=== PATIENT | female | born 1945 | race Hispanic/Latino ===

== ENCOUNTER → 2019-05-01 | Outpatient (CLI) | payer MEDICARE ==
[~2019-05-01] MED LIST: IOHEXOL-350 50ML VIAL IV ONE; IOHEXOL-350 75 ML VIAL IV ONE
== END | disposition home or self-care (01) ==
LOC: RAH 07:40
PROVIDERS: ATTEND Internal Medicine Cardiovascular Disease
DX: K57.30 Diverticulosis of large intestine without perforation or abscess without bleeding (principal); I70.0 Atherosclerosis of aorta; I70.8 Atherosclerosis of other arteries; K42.9 Umbilical hernia without obstruction or gangrene; N20.0 Calculus of kidney; I10 Essential (primary) hypertension; K59.00 Constipation, unspecified; Z90.49 Acquired absence of other specified parts of digestive tract
CPT/HCPCS: 75635; Q9967 ×2

== ENCOUNTER → 2019-05-12 | Outpatient (CLI) | payer MEDICARE | END | disposition home or self-care (01) | LOC: SHCH 13:34 → EDUNIT# 14:00 | PROVIDERS: ATTEND Internal Medicine Cardiovascular Disease | DX: I10 Essential (primary) hypertension (principal) | CPT/HCPCS: 93306 ==

== ENCOUNTER → 2019-08-18 | Outpatient (CLI) | payer MEDICARE ==
[2019-08-18 10:28] LABS: HEMOGLOBIN A1C 5.4 % (4.0-6.0)
[2019-08-18 10:40] LABS: CREATININE 0.8 mg/dL (0.5-1.5); POTASSIUM 3.7 mmol/L (3.5-5.1); THYROID STIMULATING HORMONE 1.62 uIU/mL (0.36-3.74)
== END | disposition home or self-care (01) ==
LOC: LAB 09:47
PROVIDERS: ATTEND Internal Medicine
DX: D35.00 Benign neoplasm of unspecified adrenal gland (principal); R73.9 Hyperglycemia, unspecified; R78.5 Finding of other psychotropic drug in blood; E04.9 Nontoxic goiter, unspecified; I70.0 Atherosclerosis of aorta
CPT/HCPCS: 36415; 80048; 80061; 82308; 83036; 84439; 84443

== ENCOUNTER → 2019-08-25 | Outpatient (CLI) | payer MEDICARE ==
[~2019-08-25] MED LIST changes: +GADODIAMIDE 10 MMOL/20 ML VIAL IV ONE; -IOHEXOL-350 50ML VIAL IV ONE; -IOHEXOL-350 75 ML VIAL IV ONE
== END | disposition home or self-care (01) ==
LOC: RAH 07:53
PROVIDERS: ATTEND Student in an Organized Health Care Education/Training Program
DX: G24.5 Blepharospasm (principal)
CPT/HCPCS: 70553; A9579

== ENCOUNTER → 2019-09-13 | Outpatient (CLI) | payer MEDICARE ==
[~2019-09-13] MED LIST changes: -GADODIAMIDE 10 MMOL/20 ML VIAL IV ONE; +IOHEXOL 350 MG/ML 100ML INFUS..BTL IV ONE
== END | disposition home or self-care (01) ==
LOC: RAH 08:19
PROVIDERS: ATTEND Internal Medicine
DX: K76.89 Other specified diseases of liver (principal); E27.9 Disorder of adrenal gland, unspecified; D35.00 Benign neoplasm of unspecified adrenal gland; Z90.49 Acquired absence of other specified parts of digestive tract
CPT/HCPCS: 74170; 76536; Q9967